=== PATIENT | female | born 1995 | race Caucasian/White ===

== ENCOUNTER 2016-08-22 15:56 | Inpatient (IN) | payer BC ==
--- NOTE | 2016-08-22 18:38 | PDOREHIP ---
Admission [facility] - Admission - 3 Day Assessment Period Admission Date/Day 1: 08/22/16 Day 2: 08/23/16 Day 3: 08/24/16 - Active Diagnoses Comorbidities and Co-existing Conditions at Admission: [id number]. None of the Above - Skin Conditions Unhealed Pressure Ulcer (1 or more/Stage 1 or >)-Admission: 0. No
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
[2016-08-22] MEDS ORDERED: levETIRAcetam 250 MG TAB PO SCH (21:00)
[2016-08-23] MEDS: ACETAMINOPHEN 500 MG TAB PO PRN (08:15)
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
[2016-08-24] MEDS: ACETAMINOPHEN 500 MG TAB PO PRN ×2 (12:12→22:21)
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
[2016-08-25] MEDS ORDERED: MAGNESIUM HYDROXIDE 30 ML UDCUP PO PRN (12:02)
[2016-08-25] MEDS: SENNOSIDES/DOCUSATE SODIUM TAB PO SCH (20:38)
[2016-08-26] MEDS: SENNOSIDES/DOCUSATE SODIUM TAB PO SCH ×2 (09:17→21:29)
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
[2016-08-27] MEDS: SENNOSIDES/DOCUSATE SODIUM TAB PO SCH ×2 (08:25→20:56)
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
[2016-08-28] MEDS: SENNOSIDES/DOCUSATE SODIUM TAB PO SCH ×2 (09:37→20:41)
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
[2016-08-28] MEDS: ACETAMINOPHEN 500 MG TAB PO PRN (22:09)
[2016-08-29] MEDS: SENNOSIDES/DOCUSATE SODIUM TAB PO SCH ×2 (08:59→20:26)
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
[2016-08-30] MEDS: SENNOSIDES/DOCUSATE SODIUM TAB PO SCH ×2 (08:46→19:40)
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
[2016-08-30 21:49] VITALS: O2SAT 96
[2016-08-31 08:46] VITALS: BP 86/43; PULSE 61; RESP 18; TEMP 97.9
[2016-08-31] MEDS: SENNOSIDES/DOCUSATE SODIUM TAB PO SCH (09:51)
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
== END 2016-08-31 11:30 | disposition home or self-care (01) | DRG 946 ==
LOC: BREH 15:56
PROVIDERS: ADMIT Internal Medicine; ATTEND Internal Medicine
PROC: F08Z7ZZ Vocational Activities and Functional Community or Work Reintegration Skills Treatment (ICD-10-PCS; principal; 2016-08-22)
PROC: F07M3ZZ Motor Function Treatment of Musculoskeletal System - Whole Body (ICD-10-PCS; principal; 2016-08-22)
PROC: F0636ZZ Communicative/Cognitive Integration Skills Treatment of Neurological System - Whole Body (ICD-10-PCS; principal; 2016-08-22)
DX: S06.2X9D Diffuse traumatic brain injury with loss of consciousness of unspecified duration, subsequent encounter (principal); S06.369D Traumatic hemorrhage of cerebrum, unspecified, with loss of consciousness of unspecified duration, subsequent encounter; V49.59XD Passenger injured in collision with other motor vehicles in traffic accident, subsequent encounter; S02.609D Fracture of mandible, unspecified, subsequent encounter for fracture with routine healing; K59.00 Constipation, unspecified
CPT/HCPCS: 92507-GN; 97110-GO; 97110-GP; 97112-GP; 97116-GP; 97162-GP; 97166-GO; 97530-GO; 97530-GP; 97532-GO; 97535-GO; 97537-GO; 99366-GO